=== PATIENT | female | born 1980 | race Caucasian/White ===

== ENCOUNTER 2016-10-14 12:25 | Emergency (ER) | payer MEDICARE ==
[2016-10-14] MEDS ORDERED: KEPPRA 1,000 MG/NS 0.75% 100ML 1,000 MG/100 ML BAG IV ONE (14:11)
[2016-10-14] MEDS ORDERED: NACL 0.9% 1000 ML 1,000 ML IV ONE ×3 (14:37→16:34)
--- NOTE | 2016-10-14 14:42 | Emergency Department Report ---
HPI - General Chief Complaint: Seizure Time Seen by Provider: 10/14/16 14:28 - HPI HPI: Room 26 The patient is a 36-year-old female presenting with a chief complaint of seizure. The patient has a history of seizures reportedly had a seizure prior to arrival witnessed by the caregiver. Patient states she has been compliant with her Keppra. Patient's only complaint currently is feeling hungry. Patient states last time she had a seizure before today was "a long time ago." The patient states she has not taken her daily propranolol today Location: Central nervous system Duration: Unknown Quality: Generalized tonic-clonic Severity: [see above] Modifying factors: [see above] Context: [see above] Mode of transportation: [not driving] ED Past Medical Hx - Past Medical History Previous Medical History?: Yes Hx Hypertension: Yes Hx Psychiatric Treatment: Yes (paranoid schizophrenia) Additional medical history: IBS, Cyclothymic Disorder - Surgical History Past Surgical History?: No - Family History Family history: no significant - Social History Smoking Status: Never Smoker Substance Use Type: None - Medications Home Medications: Home Medications Medication Instructions Recorded Confirmed Last Taken Type FLUoxetine [PROzac] 20 mg PO QDAY 10/14/16 10/14/16 Unknown History Propranolol [Inderal] 20 mg PO DAILY 10/14/16 10/14/16 Unknown History cloZAPine 200 mg PO DAILY 10/14/16 10/14/16 Unknown History lamoTRIgine [LaMICtal] 100 mg PO QDAY 10/14/16 10/14/16 Unknown History levETIRAcetam [Keppra TAB] 500 mg PO BID #90 tablet 10/14/16 Unknown Rx ED Review of Systems ROS: Stated complaint: SEIZURE Other details as noted in HPI Comment: All other systems reviewed and negative Constitutional: denies: chills, fever Eyes: denies: eye pain, eye discharge, vision change ENT: denies: ear pain, throat pain Respiratory: denies: cough, shortness of breath, wheezing Cardiovascular: denies: chest pain, palpitations Endocrine: no symptoms reported Gastrointestinal: other (hunger) Genitourinary: denies: urgency, dysuria, discharge Musculoskeletal: denies: back pain, joint swelling, arthralgia Skin: denies: rash, lesions Neurological: other (seizure) Psychiatric: denies: anxiety, depression Hematological/Lymphatic: denies: easy bleeding, easy bruising Physical Exam - Physical Exam Vital Signs: Vital Signs 10/14/16 12:36 Temperature 97.9 F Pulse Rate 122 H Respiratory 18 Rate Blood Pressure 114/72 O2 Sat by Pulse 100 Oximetry Physical Exam: GENERAL: The patient is a well-nourished female lying on stretcher not appearing to be in acute distress. [] HEENT: Normocephalic. Atraumatic. Extraocular motions are intact. Patient has moist mucous membranes. NECK: Supple. Trachea midline CHEST/LUNGS: Clear to auscultation. There is no respiratory distress noted. HEART/CARDIOVASCULAR: Regular. There is no tachycardia. There is no gallop rub or murmur. ABDOMEN: Abdomen is soft, nontender. Patient has normal bowel sounds. There is no abdominal distention. SKIN: There is no rash. There is no edema. There is no diaphoresis. NEURO: The patient is awake and alert. The patient is cooperative. The patient has normal speech MUSCULOSKELETAL: There is no evidence of acute injury. ED Course Vital Signs 10/14/16 12:36 Temperature 97.9 F Pulse Rate 122 H Respiratory 18 Rate Blood Pressure 114/72 O2 Sat by Pulse 100 Oximetry ED Medical Decision Making - Lab Data Result diagrams: 10/14/16 14:46 10/14/16 14:46 Laboratory Tests 10/14/16 10/14/16 14:46 14:46 WBC 8.5 RBC 4.17 Hgb 11.7 Hct 35.8 MCV 86 MCH 28 MCHC 33 RDW 13.7 Plt Count 247 Lymph % (Auto) 11.1 L Morrison % (Auto) 7.1 Eos % (Auto) 0.4 Baso % (Auto) 0.2 Lymph # 0.9 L Morrison # 0.6 Eos # 0.0 Baso # 0.0 Seg Neutrophils % 81.2 H Seg Neutrophils # 6.9 Sodium 140 Potassium 3.7 Chloride 102.6 Carbon Dioxide 25 Anion Gap 16 BUN 16 Creatinine 0.5 L Estimated GFR > 60 BUN/Creatinine Ratio 32.00 Glucose 96 Calcium 8.4 Magnesium 1.8 - Medical Decision Making Patient will be administered her propranolol - Differential Diagnosis epilepsy Critical care attestation.: If time is entered above; I have spent that time in minutes in the direct care of this critically ill patient, excluding procedure time. ED Disposition Clinical Impression: Seizure Disposition: DISCHARGED TO HOME OR SELFCARE Is pt being admited?: No Does the pt Need Aspirin: No Condition: Stable Instructions: Epilepsy (ED) Additional Instructions: Return to the emergency department immediately should you develop worsening symptoms, fever, inability to tolerate food or liquid or any other concerns. Prescriptions: levETIRAcetam [Keppra TAB] 500 mg PO BID #90 tablet Referrals: DR LYDIA [Other] - 3-5 Days Time of Disposition: 19:49
[2016-10-14 15:03] LABS: Basophils % (Auto) 0.2 % (0.0-1.8); Eosinophils % (Auto) 0.4 % (0.0-4.3); Hematocrit 35.8 % (30.3-42.9); Hemoglobin 11.7 gm/dl (10.1-14.3); Mean Corpuscular HGB Conc 33 % (30-34); Mean Corpuscular Hemoglobin 28 pg (28-32); Mean Corpuscular Volume 86 fl (79-97); Platelet Count 247 K/mm3 (140-440); Red Blood Count 4.17 M/mm3 (3.65-5.03); Red Cell Distribution Width 13.7 % (13.2-15.2); White Blood Count 8.5 K/mm3 (4.5-11.0)
[2016-10-14 15:43] LABS: Anion Gap 16 mmol/L; Blood Urea Nitrogen 16 mg/dL (7-17); Calcium 8.4 mg/dL (8.4-10.2); Carbon Dioxide 25 mmol/L (22-30); Chloride 102.6 mmol/L (98-107); Glucose 96 mg/dL (65-100); Magnesium 1.8 mg/dL (1.7-2.3); Potassium 3.7 mmol/L (3.6-5.0); Sodium 140 mmol/L (137-145)
[2016-10-14 18:06] VITALS: BP 106/50
--- NOTE | 2016-10-14 18:57 | Admit Criteria Form ---
Admission Criteria Documentation: SEIZURE Clinical Indications for Admission to Inpatient Care (Place 'X' for any and all applicable criteria): Admission is indicated for seizure and ANY ONE of the following(1)(2)(3)(4)(5): [X]I. Inpatient admission required rather than observation care (Also use Seizure: Observation Care Criteria as appropriate) because of ANY ONE of the following: [ ]a) Altered mental status that is severe or persistent [ ]b) New focal neurologic deficit that is severe or persistent [ ]c) Metabolic disorder (eg, hypoglycemia, hyponatremia) that is severe or persistent [X ]d) Recurrent seizure [ ]e) Outpatient antiseizure regimen cannot be established (eg , patient cannot tolerate medication, initiation requires inpatient care) [ ]f) Need for ongoing intravenous infusion of antiseizure medication [ ]g) Cardiac arrhythmias of immediate concern [ ]h) Cerebral bleeding, hydrocephalus, or vasospasm monitoring (14) [ ]i) Increased intracranial pressure or cerebral edema monitoring (15) [ ]j) Other treatment or monitoring requiring inpatient admission [ ]II. Status epilepticus [A] or repetitive seizures not controlled with emergent treatment (6)(8) [ ]III. Brain disorder (eg, tumor, edema, and hydrocephalus) that requiring monitoring or intervention available only at inpatient level of care. [ ]IV. Brain insult (eg, severe trauma, stroke, drug toxicity, or withdrawal) that requires monitoring or intervention available only at inpatient level of care (10)(11) Extended stay beyond goal length of stay may be needed for (22) [ ]a) Complications of status epilepticus [ ]b) Refractory status epilepticus [ ]c) Etiology-specific therapy for conditions such as SHEET CUTTER infection, head injury,eclampsia, severe metabolic abnormalities, and brain tumor [ ]d) Residual neurologic damage, [ ]e) Initiation of significant change to anticonvulsant treatment [ ]f) Older patients (65 years or older) [ ]g) Patient requiring intubation (eg, to protect airway) The original [employer] content created by [employer] has been revised. The portions of the content which have been revised are identified through the use of italic text or in bold, and [employer] [employer] has neither reviewed nor approved the modified material. All other unmodified content is copyright [facility]. Please see references footnoted in the original [facility] edition 2016
[2016-10-14] MEDS ORDERED: INDERAL PO ONE (20:30)
== END 2016-10-15 01:30 | disposition home or self-care (01) ==
LOC: ED 12:25
DX: R56.9 Unspecified convulsions (principal); I10 Essential (primary) hypertension; F20.9 Schizophrenia, unspecified
CPT/HCPCS: 36415; 80048; 82962; 83735; 85025; 93005; 93010; 96361; 96374; 99284; J1953; J7030